=== PATIENT | male | born 1955 | race Caucasian/White ===

== ENCOUNTER 2016-10-15 22:33 | Inpatient (IN) | payer OTHER ==
[2016-10-15] MEDS ORDERED: Sodium Chloride 0.9% 10 ML Syringe FLUSH PRN (22:49)
[2016-10-15] MEDS ORDERED: Sodium Chloride 0.9% 2.5 ML Syringe FLUSH PRN (22:49)
[2016-10-15 23:36] LABS: CHLORIDE,CL 108 mmol/L (98-110); SODIUM,NA 143 mmol/L (136-146)
[2016-10-15] MEDS: Ondansetron 4 MG/2 ML SDV IVPUSH ONE (23:55)
[2016-10-15] MEDS: Sodium Chloride 0.9% 1,000 ML IV ONE (23:55)
[2016-10-16] MEDS ORDERED: HYDROmorphone 1 MG/ML Syringe IVPUSH ONE ×2 (00:27→00:55)
[2016-10-16] MEDS: Ondansetron 4 MG/2 ML SDV IVPUSH ONE (00:34)
[2016-10-16] MEDS: Sodium Chloride 0.9% 1,000 ML IV ONE (00:34)
--- NOTE | 2016-10-16 00:36 | EDM.PDOC ---
ED HPI GENERAL MEDICAL PROBLEM - General Chief Complaint: Gastrointestinal Problem Stated Complaint: ABDOMINAL PAIN Time Seen by Provider: 10/15/16 22:46 - History of Present Illness INITIAL COMMENTS - FREE TEXT/NARRATIVE: HISTORY AND PHYSICAL: History of present illness: Patient is 61-year-old white male with a prior abdominal surgeries and since her acute abdominal pain started earlier tonight he presents by paramedics who were called for his abdominal pain he was given fentanyl prior to arrival there is no reported fever chills trauma chest pain shortness of breath or other concern Review of systems: As per history of present illness and below otherwise all systems reviewed and negative. Past medical history: As per history of present illness and as reviewed below otherwise noncontributory. Surgical history: As per history of present illness and as reviewed below otherwise noncontributory. Social history: No reported history of drug or alcohol abuse. Family history: As per history of present illness and as reviewed below otherwise noncontributory. Physical exam: HEENT: Atraumatic, normocephalic, pupils reactive, negative for conjunctival pallor or scleral icterus, mucous membranes dry, throat clear, neck supple, nontender, trachea midline. Lungs: Clear to auscultation, breath sounds equal bilaterally, chest nontender. Heart: S1S2, regular, negative for clicks, rubs, or JVD. Abdomen: Soft, nondistended, tenderness across the upper abdomen this is nonlocalized no rebound no guarding. Negative for masses or hepatosplenomegaly. Negative for costovertebral tenderness. Pelvis: Stable nontender. Genitourinary: Deferred. Rectal: Deferred. Extremities: Atraumatic, negative for cords or calf pain. Neurovascular unremarkable. Neuro: Awake, alert, oriented. Cranial nerves II through XII unremarkable. Cerebellum unremarkable. Motor and sensory unremarkable throughout. Exam nonfocal. Diagnostics: CBC CMP lipase chest x-ray EKG UA EtOH urine drug screen CT abdomen and pelvis Therapeutics: Normal saline 1 L bolus Dilaudid 1 mg IV Zofran 4 mg IV the NG tube Impression: #1 acute abdominal pain rule out bowel obstruction Definitive disposition and diagnosis as appropriate pending reevaluation and review of above. Bilateral Abdominal Pain Score (Numeric/FACES): 10 - Related Data Allergies Allergy/AdvReac Type Severity Reaction Status Date / Time No Known Allergies Allergy Verified 10/15/16 22:51 Home Meds: Home Meds Tamsulosin [Flomax] 1 tab PO DAILY 10/15/16 [History] Past Medical History - Past Health History Medical/Surgical History: Denies Medical/Surgical History Gastrointestinal History: Reports: Other (see below) Other Gastrointestinal History: twisted bowel Genitourinary History: Reports: BPH - Infectious Disease History Infectious Disease History: Reports: Chicken pox, Measles, Mumps Social & Family History - Family History Family Medical History: Noncontributory - Tobacco Use Smoking Status *Q: Current Every Day Smoker Years of Tobacco use: 30 Packs/Tins Daily: 1 - Caffeine Use Caffeine Use: Reports: None - Recreational Drug Use Recreational Drug Use: No ED ROS GENERAL - Review of Systems Review Of Systems: ROS reveals no pertinent complaints other than HPI. ED EXAM, GENERAL - Physical Exam Exam: See Below (See dictation) Course - Vital Signs Last Recorded V/S: Last Vital Signs Temp 36.6 C 10/15/16 22:46 Pulse 67 10/15/16 22:46 Resp 22 H 10/15/16 22:46 BP 155/87 H 10/15/16 22:46 Pulse Ox 97 10/15/16 22:46 - Orders/Labs/Meds Orders: Active Orders 24 hr Category Date Time Status Cardiac Monitoring [RC] . DIRECTED Care 10/15/16 22:48 Active EKG Documentation Completion [RC] STAT Care 10/15/16 22:49 Active Insert Lagunas Catheter [Insert Urinary Catheter] [OM.PC] Care 10/16/16 01:45 Ordered Q24H Pulse Oximetry [RC] ASDIRECTED Care 10/15/16 22:49 Active Urinary Catheter Assessment [RC] ASDIRECTED Care 10/16/16 01:40 Active Abdomen 1V Upright [CR] Stat Exams 10/16/16 01:13 Taken Abdomen Pelvis wo Cont [CT] Stat Exams 10/15/16 22:49 Taken Chest 1V Frontal [CR] Stat Exams 10/15/16 22:49 Taken UA W/MICROSCOPIC [URIN] Stat Lab 10/15/16 22:49 Ordered Sodium Chloride 0.9% [Saline Flush] Med 10/15/16 22:49 Active 10 ml FLUSH ASDIRECTED PRN Sodium Chloride 0.9% [Saline Flush] Med 10/15/16 22:49 Active 2.5 ml FLUSH ASDIRECTED PRN Nasogastric Orogastric Tube Insertion [OM.PC] Stat Oth 10/16/16 00:27 Ordered Saline Lock Insert [OM.PC] Stat Ot 10/15/16 22:48 Ordered Medication Orders Sodium Chloride (Saline Flush) 10 ml FLUSH ASDIRECTED PRN PRN Reason: Keep Vein Open Last Admin: 10/16/16 00:34 Dose: 10 ml Sodium Chloride (Saline Flush) 2.5 ml FLUSH ASDIRECTED PRN PRN Reason: Keep Vein Open Last Admin: 10/16/16 00:34 Dose: 2.5 ml Labs: Laboratory Tests 10/15/16 10/15/16 10/15/16 Range/Units 00:00 23:03 23:03 WBC 12.94 H (4.0-11.0) K/uL RBC 4.49 L (4.50-5.90) M/uL Hgb 14.1 (13.0-17.0) g/dL Hct 41.0 (38.0-50.0) % MCV 91.3 (80.0-98.0) fL MCH 31.4 (27.0-32.0) pg MCHC 34.4 (31.0-37.0) g/dL RDW Std Deviation 48.3 (28.0-62.0) fl RDW Coeff of Wilfred 14 (11.0-15.0) % Plt Count 371 (150-400) K/uL MPV 9.70 (7.40-12.00) fL Neut % (Auto) 83.5 H (48.0-80.0) % Lymph % (Auto) 11.0 L (16.0-40.0) % [place] % (Auto) 5.0 (0.0-15.0) % Eos % (Auto) 0.3 (0.0-7.0) % Baso % (Auto) 0.2 (0.0-1.5) % Neut # (Auto) 10.8 H (1.4-5.7) K/uL Lymph # (Auto) 1.4 (0.6-2.4) K/uL Titus # (Auto) 0.7 (0.0-0.8) K/uL Eos # (Auto) 0.0 (0.0-0.7) K/uL Baso # (Auto) 0.0 (0.0-0.1) K/uL Nucleated RBC % 0.0 /100WBC Nucleated RBCs # 0 K/uL INR 0.97 (0.86-1.11) Lactate (0.20-2.00) mmol/L Sodium (136-146) mmol/L Potassium (3.5-5.1) mmol/L Chloride (98-110) mmol/L Carbon Dioxide (21-31) mmol/L BUN (6.0-23.0) mg/dL Creatinine (0.6-1.5) mg/dL Est Cr Clr Drug Dosing mL/min Estimated GFR (MDRD) ml/min Glucose (60-110) mg/dL Calcium (8.8-10.8) mg/dL Total Bilirubin (0.1-1.5) mg/dL AST (5-40) IU/L ALT (8-54) IU/L Alkaline Phosphatase (40-150) Ammonia (14-68) UG/DL Troponin I (0.0-0.29) NG/ML Total Protein (6.0-8.0) g/dL Albumin (3.4-4.8) g/dL Globulin (2.0-3.5) g/dL Albumin/Globulin Ratio (1.3-2.8) Lipase (7-80) U/L Urine Opiates Screen NEGATIVE (NEGATIVE) Ur Oxycodone Screen NEGATIVE (NEGATIVE) Urine Methadone Screen NEGATIVE (NEGATIVE) Ur Barbiturates Screen NEGATIVE (NEGATIVE) Ur Phencyclidine Scrn NEGATIVE (NEGATIVE) Ur Amphetamine Screen NEGATIVE (NEGATIVE) U Methamphetamines Scrn POSITIVE (NEGATIVE) U Benzodiazepines Scrn NEGATIVE (NEGATIVE) U Cocaine Metab Screen NEGATIVE (NEGATIVE) U Marijuana (THC) Screen NEGATIVE (NEGATIVE) Ethyl Alcohol mg/dL 10/15/16 10/15/16 10/15/16 Range/Units 23:03 23:03 23:03 WBC (4.0-11.0) K/uL RBC (4.50-5.90) M/uL Hgb (13.0-17.0) g/dL Hct (38.0-50.0) % MCV (80.0-98.0) fL MCH (27.0-32.0) pg MCHC (31.0-37.0) g/dL RDW Std Deviation (28.0-62.0) fl RDW Coeff of Wilfred (11.0-15.0) % Plt Count (150-400) K/uL MPV (7.40-12.00) fL Neut % (Auto) (48.0-80.0) % Lymph % (Auto) (16.0-40.0) % Titus % (Auto) (0.0-15.0) % Eos % (Auto) (0.0-7.0) % Baso % (Auto) (0.0-1.5) % Neut # (Auto) (1.4-5.7) K/uL Lymph # (Auto) (0.6-2.4) K/uL Titus # (Auto) (0.0-0.8) K/uL Eos # (Auto) (0.0-0.7) K/uL Baso # (Auto) (0.0-0.1) K/uL Nucleated RBC % /100WBC Nucleated RBCs # K/uL INR (0.86-1.11) Lactate 1.7 (0.20-2.00) mmol/L Sodium 143 (136-146) mmol/L Potassium 4.6 (3.5-5.1) mmol/L Chloride 108 (98-110) mmol/L Carbon Dioxide 22 (21-31) mmol/L BUN 33 H (6.0-23.0) mg/dL Creatinine 1.2 (0.6-1.5) mg/dL Est Cr Clr Drug Dosing 71.85 mL/min Estimated GFR (MDRD) > 60.0 ml/min Glucose 110 (60-110) mg/dL Calcium 10.0 (8.8-10.8) mg/dL Total Bilirubin 0.3 (0.1-1.5) mg/dL AST 21 (5-40) IU/L ALT 13 (8-54) IU/L Alkaline Phosphatase 87 (40-150) Ammonia (14-68) UG/DL Troponin I < 0.10 (0.0-0.29) NG/ML Total Protein 7.9 (6.0-8.0) g/dL Albumin 4.6 (3.4-4.8) g/dL Globulin 3.3 (2.0-3.5) g/dL Albumin/Globulin Ratio 1.4 (1.3-2.8) Lipase 34 (7-80) U/L Urine Opiates Screen (NEGATIVE) Ur Oxycodone Screen (NEGATIVE) Urine Methadone Screen (NEGATIVE) Ur Barbiturates Screen (NEGATIVE) Ur Phencyclidine Scrn (NEGATIVE) Ur Amphetamine Screen (NEGATIVE) U Methamphetamines Scrn (NEGATIVE) U Benzodiazepines Scrn (NEGATIVE) U Cocaine Metab Screen (NEGATIVE) U Marijuana (THC) Screen (NEGATIVE) Ethyl Alcohol < 10.0 mg/dL 10/15/16 Range/Units 23:03 WBC (4.0-11.0) K/uL RBC (4.50-5.90) M/uL Hgb (13.0-17.0) g/dL Hct (38.0-50.0) % MCV (80.0-98.0) fL MCH (27.0-32.0) pg MCHC (31.0-37.0) g/dL RDW Std Deviation (28.0-62.0) fl RDW Coeff of Wilfred (11.0-15.0) % Plt Count (150-400) K/uL MPV (7.40-12.00) fL Neut % (Auto) (48.0-80.0) % Lymph % (Auto) (16.0-40.0) % Titus % (Auto) (0.0-15.0) % Eos % (Auto) (0.0-7.0) % Baso % (Auto) (0.0-1.5) % Neut # (Auto) (1.4-5.7) K/uL Lymph # (Auto) (0.6-2.4) K/uL Titus # (Auto) (0.0-0.8) K/uL Eos # (Auto) (0.0-0.7) K/uL Baso # (Auto) (0.0-0.1) K/uL Nucleated RBC % /100WBC Nucleated RBCs # K/uL INR (0.86-1.11) Lactate (0.20-2.00) mmol/L Sodium (136-146) mmol/L Potassium (3.5-5.1) mmol/L Chloride (98-110) mmol/L Carbon Dioxide (21-31) mmol/L BUN (6.0-23.0) mg/dL Creatinine (0.6-1.5) mg/dL Est Cr Clr Drug Dosing mL/min Estimated GFR (MDRD) ml/min Glucose (60-110) mg/dL Calcium (8.8-10.8) mg/dL Total Bilirubin (0.1-1.5) mg/dL AST (5-40) IU/L ALT (8-54) IU/L Alkaline Phosphatase (40-150) Ammonia 38 (14-68) UG/DL Troponin I (0.0-0.29) NG/ML Total Protein (6.0-8.0) g/dL Albumin (3.4-4.8) g/dL Globulin (2.0-3.5) g/dL Albumin/Globulin Ratio (1.3-2.8) Lipase (7-80) U/L Urine Opiates Screen (NEGATIVE) Ur Oxycodone Screen (NEGATIVE) Urine Methadone Screen (NEGATIVE) Ur Barbiturates Screen (NEGATIVE) Ur Phencyclidine Scrn (NEGATIVE) Ur Amphetamine Screen (NEGATIVE) U Methamphetamines Scrn (NEGATIVE) U Benzodiazepines Scrn (NEGATIVE) U Cocaine Metab Screen (NEGATIVE) U Marijuana (THC) Screen (NEGATIVE) Ethyl Alcohol mg/dL Meds: Medications Generic Name Dose Route Start Last Admin Trade Name Freq PRN Reason Stop Dose Admin Sodium Chloride 10 ml 10/15/16 22:49 10/16/16 00:34 Saline Flush FLUSH 10 ml ASDIRECTED PRN Administration Keep Vein Open Sodium Chloride 2.5 ml 10/15/16 22:49 10/16/16 00:34 Saline Flush FLUSH 2.5 ml ASDIRECTED PRN Administration Keep Vein Open Discontinued Medications Generic Name Dose Route Start Last Admin Trade Name Freq PRN Reason Stop Dose Admin Hydromorphone HCl 1 mg 10/16/16 00:27 10/16/16 00:34 Dilaudid IVPUSH 10/16/16 00:28 1 mg ONETIME ONE Administration Hydromorphone HCl Confirm 10/16/16 00:46 10/16/16 01:00 Dilaudid Administered 10/16/16 00:47 Not Given Dose 2 mg .ROUTE .STK-MED ONE Hydromorphone HCl 2 mg 10/16/16 00:55 10/16/16 01:01 Dilaudid IVPUSH 10/16/16 00:56 2 mg ONETIME ONE Administration Sodium Chloride 1,000 mls @ 999 mls/hr 10/15/16 22:49 10/16/16 00:34 Normal Saline IV 10/15/16 23:49 999 mls/hr STAT ONE Administration Ondansetron HCl 4 mg 10/15/16 22:49 10/16/16 00:34 Zofran IVPUSH 10/15/16 22:50 4 mg ONETIME ONE Administration Departure - Departure Time of Disposition: 00:35 Disposition: Admitted As Inpatient 67 Condition: good Clinical Impression: Abdominal pain, Small bowel obstruction Referrals: PCP,None [Primary Care Provider] - Forms: ED Department Discharge - My Orders Last 24 Hours: My Active Orders 10/15/16 22:48 Cardiac Monitoring [RC] . DIRECTED Saline Lock Insert [OM.PC] Stat 10/15/16 22:49 EKG Documentation Completion [RC] STAT Pulse Oximetry [RC] ASDIRECTED Abdomen Pelvis wo Cont [CT] Stat Chest 1V Frontal [CR] Stat UA W/MICROSCOPIC [URIN] Stat Sodium Chloride 0.9% [Saline Flush] 10 ml FLUSH ASDIRECTED PRN Sodium Chloride 0.9% [Saline Flush] 2.5 ml FLUSH ASDIRECTED PRN 10/16/16 00:27 Nasogastric Orogastric Tube Insertion [OM.PC] Stat 10/16/16 01:13 Abdomen 1V Upright [CR] Stat 10/16/16 01:40 Urinary Catheter Assessment [RC] ASDIRECTED 10/16/16 01:45 Insert Lagunas Catheter [Insert Urinary Catheter] [OM.PC] Q24H - Assessment/Plan Last 24 Hours: My Active Orders 10/15/16 22:48 Cardiac Monitoring [RC] . DIRECTED Saline Lock Insert [OM.PC] Stat 10/15/16 22:49 EKG Documentation Completion [RC] STAT Pulse Oximetry [RC] ASDIRECTED Abdomen Pelvis wo Cont [CT] Stat Chest 1V Frontal [CR] Stat UA W/MICROSCOPIC [URIN] Stat Sodium Chloride 0.9% [Saline Flush] 10 ml FLUSH ASDIRECTED PRN Sodium Chloride 0.9% [Saline Flush] 2.5 ml FLUSH ASDIRECTED PRN 10/16/16 00:27 Nasogastric Orogastric Tube Insertion [OM.PC] Stat 10/16/16 01:13 Abdomen 1V Upright [CR] Stat 10/16/16 01:40 Urinary Catheter Assessment [RC] ASDIRECTED 10/16/16 01:45 Insert Lagunas Catheter [Insert Urinary Catheter] [OM.PC] Q24H
[2016-10-16] MEDS ORDERED: HYDROmorphone 2 MG/ML Syringe ONE (00:46)
--- NOTE | 2016-10-16 02:35 | HP ---
DATE OF : 1955 PRIMARY CARE PHYSICIAN: None PCP Consult is from Dr. Evans. Concerning question is possible bowel obstruction. HISTORY OF PRESENT ILLNESS: The patient is a 61-year-ago gentleman, seen in the emergency room for 7 to 10 day history of abdominal pain. The patient remarked that this is from his stomach problem. The patient's history is the best I can make out off as patient is having pain medication and intermittently going back to sleep. The patient remarked that he has not been feeling right for about 7 to 10 day and pain is in the last 3 days. The patient also remarked that he has normal well- formed bowel movement today. When seen emergency room, pain persist and seek help in the emergency room. CAT scan was done, shows that possible bowel obstruction. Surgery was then called. The patient remarked that he also had a prior episode about 4 to 5 years ago and his bowel was twisted. PAST MEDICAL HISTORY: Significant for no diabetic, [place], CVA, hypertension. PAST SURGICAL HISTORY: On 2012, the patient has some twist of bowel surgery. REVIEW OF SYSTEMS: Same as history of present illness. ALLERGIES: Please refer nursing for details. MEDICATION: Please refer nursing for details. FAMILY HISTORY: Noncontributory. SOCIAL HISTORY: The patient is current everyday smoker and his UA test is positive for amphetamine. Cocaine and alcohol are negative. PHYSICAL EXAMINATION: GENERAL: The patient is completely snoring, lying in the bed, able to be awake and sometimes do eye opening. Deny pain. Every time while asking he has denied pain. Of course we understand that the patient had 3 mg of Dilaudid. NG tube is inserted and Lagunas is inserted with some difficulty as patient has BPH. HEENT: Normocephalic, atraumatic. Sclerae anicteric. LUNGS: Clear to auscultation. HEART: Regular rate and rhythm. ABDOMEN: Soft, and decreased bowel sounds. Nontender and very small midline incision, right around in navel area about 5 cm. No hernia appreciated. : Testes, bilaterally descended. Soft and symmetrically. IMPRESSION: Ileus versus bowel obstruction. With the patient current status, examination may not be reliable. However, the patient has absolutely denied any pain and prefer the surveillance and close monitoring plan. We will admit for observation, IV hydration, n.p.o., no Tylenol or pain medication, and reassess after NG tube working. NG tube put in and output is 1500. Lagunas put in, PP is pretty nicolas and close to about 2 L. Would put the patient on IV hydration, serial abdominal exam, and repeat CT with IV contrast. AMALAI / MARRY /[id number]
[2016-10-16] MEDS: Lactated Ringers 1,000 ML IV SCH ×3 (02:55→18:08)
[2016-10-16] MEDS: Piperacillin/Tazobactam 3.375 GM in Sodium Chloride 0.9% 50 ML IV SCH ×3 (03:13→18:06)
[2016-10-16] MEDS ORDERED: Haloperidol Lactate 5 MG/ML SDV IM ONE (06:24)
[2016-10-16] MEDS ORDERED: fentaNYL 100 MCG/2 ML SDV IVPUSH PRN (06:24)
[2016-10-16] MEDS ORDERED: Haloperidol Lactate 5 MG/ML SDV ONE (06:24)
[2016-10-16] MEDS ORDERED: fentaNYL 100 MCG/2 ML SDV ONE (06:24)
[2016-10-16] MEDS ORDERED: Haloperidol Lactate 5 MG/ML SDV IM PRN (06:43)
[2016-10-16] MEDS ORDERED: LORazepam 2 MG/ML MDV IV PRN (07:18)
[2016-10-16 07:37] LABS: CHLORIDE,CL 112 mmol/L (98-110); SODIUM,NA 145 mmol/L (136-146)
[2016-10-16] MEDS: Pantoprazole 40 MG in Sodium Chloride 0.9% 10 ML IVPUSH SCH (09:41)
[2016-10-16] MEDS ORDERED: Flumazenil 0.1 MG/ML 5 ML MDV IVPUSH ONE (11:28)
--- NOTE | 2016-10-16 11:53 | PCM.SN ---
- Free Text/Narrative Note: progress note done #[id number]; await delay CT at 1 pm
--- NOTE | 2016-10-16 15:06 | PCM.SURGPN ---
- General Info Date of Service: 10/16/16 Pain Score: 0 - Review of Systems Genitourinary: Reports: no symptoms - Patient Data Vitals - most recent: Last Vital Signs Temp 97.8 F 10/16/16 12:00 Pulse 74 10/16/16 01:40 Resp 16 10/16/16 14:00 BP 149/75 H 10/16/16 14:00 Pulse Ox 95 10/16/16 14:00 Weight - most recent: 155 lb 10.342 oz I&O - last 24 hours: Intake & Output 10/16/16 10/16/16 10/16/16 06:59 14:59 22:59 Intake Total 50 Output Total 450 Balance -400 Lab Results last 24 hrs: Laboratory Results - last 24 hr 10/16/16 10/16/16 Range/Units 07:05 07:05 WBC 6.86 (4.0-11.0) K/uL RBC 4.11 L (4.50-5.90) M/uL Hgb 12.6 L (13.0-17.0) g/dL Hct 37.9 L (38.0-50.0) % MCV 92.2 (80.0-98.0) fL MCH 30.7 (27.0-32.0) pg MCHC 33.2 (31.0-37.0) g/dL RDW Std Deviation 49.0 (28.0-62.0) fl RDW Coeff of Wilfred 15 (11.0-15.0) % Plt Count 321 (150-400) K/uL MPV 9.40 (7.40-12.00) fL Neut % (Auto) 68.6 (48.0-80.0) % Lymph % (Auto) 21.3 (16.0-40.0) % [place] % (Auto) 9.9 (0.0-15.0) % Eos % (Auto) 0.1 (0.0-7.0) % Baso % (Auto) 0.1 (0.0-1.5) % Neut # (Auto) 4.7 (1.4-5.7) K/uL Lymph # (Auto) 1.5 (0.6-2.4) K/uL [place] # (Auto) 0.7 (0.0-0.8) K/uL Eos # (Auto) 0.0 (0.0-0.7) K/uL Baso # (Auto) 0.0 (0.0-0.1) K/uL Nucleated RBC % 0.0 /100WBC Nucleated RBCs # 0 K/uL Sodium 145 (136-146) mmol/L Potassium 4.3 (3.5-5.1) mmol/L Chloride 112 H (98-110) mmol/L Carbon Dioxide 23 (21-31) mmol/L BUN 29 H (6.0-23.0) mg/dL Creatinine 1.0 (0.6-1.5) mg/dL Est Cr Clr Drug Dosing 78.44 mL/min Estimated GFR (MDRD) > 60.0 ml/min Glucose 119 H (60-110) mg/dL Calcium 8.6 L (8.8-10.8) mg/dL Total Bilirubin 0.4 (0.1-1.5) mg/dL AST 16 (5-40) IU/L ALT 13 (8-54) IU/L Alkaline Phosphatase 74 (40-150) Total Protein 6.6 (6.0-8.0) g/dL Albumin 3.9 (3.4-4.8) g/dL Globulin 2.7 (2.0-3.5) g/dL Albumin/Globulin Ratio 1.4 (1.3-2.8) Med Orders - Current: Current Medications Fentanyl (Sublimaze) 25 mcg IVPUSH Q2H PRN PRN Reason: Pain Last Admin: 10/16/16 06:30 Dose: 25 mcg Haloperidol Lactate (Haldol) 5 mg IM Q6H PRN PRN Reason: Agitation Lactated Ringer's (Ringers, Lactated) 1,000 mls @ 150 mls/hr IV ASDIRECTED [facility] Last Admin: 10/16/16 02:55 Dose: 150 mls/hr Pantoprazole Sodium 40 mg/ (Sodium Chloride) 10 mls @ 300 mls/hr IVPUSH DAILY [facility] Last Admin: 10/16/16 09:41 Dose: 300 mls/hr Piperacillin Sod/Tazobactam (Sod 3.375 gm/ Sodium Chloride) 50 mls @ 100 mls/ hr IV Q8H [facility] Last Admin: 10/16/16 09:41 Dose: 100 mls/hr Lorazepam (Ativan) 2 mg IV Q4H PRN PRN Reason: Agitation Last Admin: 10/16/16 07:27 Dose: 2 mg Sodium Chloride (Saline Flush) 10 ml FLUSH ASDIRECTED PRN PRN Reason: Keep Vein Open Last Admin: 10/16/16 00:34 Dose: 10 ml Sodium Chloride (Saline Flush) 2.5 ml FLUSH ASDIRECTED PRN PRN Reason: Keep Vein Open Last Admin: 10/16/16 00:34 Dose: 2.5 ml Discontinued Medications Fentanyl (Sublimaze) Confirm Administered Dose 100 mcg .ROUTE .STK-MED ONE Stop: 10/16/16 06:25 Last Admin: 10/16/16 06:40 Dose: Not Given Flumazenil (Romazicon) 0.2 mg IVPUSH ONETIME ONE Stop: 10/16/16 11:29 Last Admin: 10/16/16 11:32 Dose: 0.2 mg Haloperidol Lactate (Haldol) Confirm Administered Dose 5 mg .ROUTE .STK-MED ONE Stop: 10/16/16 06:25 Last Admin: 10/16/16 06:40 Dose: Not Given Haloperidol Lactate (Haldol) 5 mg IM ONETIME ONE Stop: 10/16/16 06:25 Last Admin: 10/16/16 06:31 Dose: 5 mg Hydromorphone HCl (Dilaudid) 1 mg IVPUSH ONETIME ONE Stop: 10/16/16 00:28 Last Admin: 10/16/16 00:34 Dose: 1 mg Hydromorphone HCl (Dilaudid) Confirm Administered Dose 2 mg .ROUTE .STK-MED ONE Stop: 10/16/16 00:47 Last Admin: 10/16/16 01:00 Dose: Not Given Hydromorphone HCl (Dilaudid) 2 mg IVPUSH ONETIME ONE Stop: 10/16/16 00:56 Last Admin: 10/16/16 01:01 Dose: 2 mg Sodium Chloride (Normal Saline) 1,000 mls @ 999 mls/hr IV STAT ONE Stop: 10/15/16 23:49 Last Admin: 10/16/16 00:34 Dose: 999 mls/hr Ondansetron HCl (Zofran) 4 mg IVPUSH ONETIME ONE Stop: 10/15/16 22:50 Last Admin: 10/16/16 00:34 Dose: 4 mg - Exam Abdomen: bowel sounds present, soft, no tenderness, no distension - Problem List Review Problem List Initiated/Reviewed/Updated: Yes - My Orders Last 24 Hours: Active Orders 24 hr Category Date Time Status Communication Order [RC] ROUTINE Care 10/16/16 02:13 Active Communication Order [RC] ROUTINE Care 10/16/16 02:17 Active Communication Order [RC] ROUTINE Care 10/16/16 06:52 Active Communication Order [RC] ROUTINE Care 10/16/16 11:27 Active Communication Order [RC] ROUTINE Care 10/16/16 11:53 Active Nothing per Oral Now Diet [DIET] Diet 10/16/16 Breakfast Active Abdomen Pelvis wo Cont [CT] Routine Exams 10/16/16 07:00 Taken Abdomen Pelvis wo Cont [CT] Routine Exams 10/16/16 13:00 Taken CBC W/O DIFF,HEMOGRAM [HEME] Routine Lab 10/17/16 05:00 Ordered CMP [COMPREHENSIVE METABOLIC PN,CMP] [CHEM] Routine Lab 10/17/16 05:00 Ordered Haloperidol Lactate [Haldol] Med 10/16/16 06:43 Active 5 mg IM Q6H PRN LORazepam [Ativan] Med 10/16/16 07:18 Active 2 mg IV Q4H PRN Lactated Ringers [Ringers, Lactated] 1,000 ml Med 10/16/16 02:15 Active IV ASDIRECTED Pantoprazole [Protonix IV] 40 mg Med 10/16/16 09:00 Active Sodium Chloride 0.9% [Normal Saline] 10 ml IVPUSH DAILY Piperacillin/Tazobactam [Piperacil-Tazobact] 3.375 gm Med 10/16/16 02:15 Active Sodium Chloride 0.9% [Normal Saline] 50 ml IV Q8H fentaNYL [Sublimaze] Med 10/16/16 06:24 Active 25 mcg IVPUSH Q2H PRN Code Status [Resuscitation Status] Routine Resus Stat 10/16/16 13:13 Ordered Medication Orders Fentanyl (Sublimaze) 25 mcg IVPUSH Q2H PRN PRN Reason: Pain Last Admin: 10/16/16 06:30 Dose: 25 mcg Haloperidol Lactate (Haldol) 5 mg IM Q6H PRN PRN Reason: Agitation Lactated Ringer's (Ringers, Lactated) 1,000 mls @ 150 mls/hr IV ASDIRECTED [facility] Last Admin: 10/16/16 02:55 Dose: 150 mls/hr Pantoprazole Sodium 40 mg/ (Sodium Chloride) 10 mls @ 300 mls/hr IVPUSH DAILY [facility] Last Admin: 10/16/16 09:41 Dose: 300 mls/hr Piperacillin Sod/Tazobactam (Sod 3.375 gm/ Sodium Chloride) 50 mls @ 100 mls/ hr IV Q8H [facility] Last Admin: 10/16/16 09:41 Dose: 100 mls/hr Infusion: 10/16/16 03:43 Dose: 100 mls/hr Admin: 10/16/16 03:13 Dose: 100 mls/hr Lorazepam (Ativan) 2 mg IV Q4H PRN PRN Reason: Agitation Last Admin: 10/16/16 07:27 Dose: 2 mg Sodium Chloride (Saline Flush) 10 ml FLUSH ASDIRECTED PRN PRN Reason: Keep Vein Open Last Admin: 10/16/16 00:34 Dose: 10 ml Sodium Chloride (Saline Flush) 2.5 ml FLUSH ASDIRECTED PRN PRN Reason: Keep Vein Open Last Admin: 10/16/16 00:34 Dose: 2.5 ml - Assessment Assessment (Free Text/Narrative):: delayed cut ct done at 1 pm noted contrast made it to colon; no bowel obstruction; continue iv abx/protonix/ivfluid; check lab in morning and kub; continue serial abd exam and fu w imaging studies; - Plan Plan (Free Text/Narrative):: delayed cut ct done at 1 pm noted contrast made it to colon; no bowel obstruction; continue iv abx/protonix/ivfluid; check lab in morning and kub; continue serial abd exam and fu w imaging studies;
[2016-10-17] MEDS: Lactated Ringers 1,000 ML IV SCH ×4 (00:54→23:43)
[2016-10-17] MEDS: Piperacillin/Tazobactam 3.375 GM in Sodium Chloride 0.9% 50 ML IV SCH ×3 (02:19→18:08)
[2016-10-17 06:11] LABS: CHLORIDE,CL 110 mmol/L (98-110); SODIUM,NA 141 mmol/L (136-146)
[2016-10-17] MEDS: Pantoprazole 40 MG in Sodium Chloride 0.9% 10 ML IVPUSH SCH (08:47)
--- NOTE | 2016-10-17 09:44 | PN ---
The patient is hospital day #1 admission for ileus versus obstruction. SUBJECTIVE: The patient's first consulted when seen in emergency room, however, the patient is getting 3 mg IV Dilaudid before prior to seen, so the patient is 90% falling to asleep and examination is deemed to be unreliable. The patient was admitted for serial abdominal exam and followup imaging study. However, around 6 o'clock in the morning, 4 hours after the admission, the patient was combative and fighting and pulling IV, pulling Lagunas. The patient had to be sedated, and so EICU was consulted and given Haldol and also fentanyl pain medication in order to calm the patient and the patient subsequently went for CAT scan about 9 o'clock after giving contrast through the NG tube and I am rounding on the patient after the CAT scan result and on top of this, the patient continued to be non-cooperative and combative and makes management difficult and also harmful to his person and the EICU doctor gave 2 mg IV Ativan. As a result, the patient is sound snoring and barely able to answer any conversation, after knocking the chest 3 times, the patient may answer half a sentence. OBJECTIVE: VITAL SIGNS: Temperature is 98.6, and heart rate is 67, blood pressure 143/80, and respiratory rate is 10, and O2 saturation by pulse is 98% on 1 L oxygen. GENERAL: The patient is totally knocked out and again able to answer maybe half a sentence after knocking at a chest 3 times. HEENT: Normocephalic and atraumatic. CHEST: Clear to auscultation. ABDOMEN: Soft, nondistended. No pulsating tender, midline abdominal structure, and there are very minimal bowel sounds with sometimes high pitch upon compression. When the patient is able to answer any question, the patient denied any pain whatsoever. Abdomen is totally soft. LABORATORY DATA: Upon consultation, H and H of 13 and 38, and white count 6.86 is down from 13, platelet is 321, and BUN is 29, and creatinine is 1.0. Urinalysis, upon admission the patient has positive for methamphetamine, negative for alcohol, negative for cocaine, and negative for marijuana. UA was sent and suggest the patient may have urinary tract infection. White cells 65-70, nitrites positive. On repeat CAT scan result the reading is persistent ileus pattern no transition zone identified. Contrast did not reach the colon. I also called Radiology, discussed the pattern, the reading is distention is slightly better, but it is persistent ileus pattern and they suggest to delay the CAT scan. IMPRESSION: The patient has not been able to have a meaningful abdominal exam, however. 1. The NG tube output is about 100 mL since insertion, very little. 2. The patient denied pain for more than 10 times every time when wake up and open his eyes. 3. The patient's white count is dropping down from 13 to 6.8. 4. The patient's urine output continued to be good nicolas on 150 mL IV fluids. 5. His tummy is resolved, although bowel sound is still less. We will continue to monitor him and absolutely no EICU consult and absolutely no narcotic pain medication Ativan, any medication or aspirin or Tylenol to mask fever, and we will wait for the 1 o'clock for the delayed contrast to reach the colon. Then, probably we will treat as ileus. Continue NG tube conservative management. Otherwise, anything suspicious will bring the patient a trip to the operating room mainly because not been able to have meaningful examination. At the same time, we also need to get the family to get a consent for the surgery if the patient need a trip to the operating room. AMALIA / MARRY /[id number] GERTRUDIS
--- NOTE | 2016-10-17 10:16 | CR ---
EXAMINATION: Abdomen HISTORY: Ileus COMPARISON: CT dated 10/16/2016. TECHNIQUE: AP and upright views FINDINGS: There is an NG tube noted with tip in the stomach, however the side-port is within the eso phagus, this could be advanced approximately 5 cm. There are a few prominent loops of small bowel no romero measuring up to 4.3 cm. There is a moderate amount of stool and gas throughout the colon. No dennis e air under the diaphragm. The lung bases are clear. The visualized osseous structures appear normal . IMPRESSION: 1. NG tube with tip in the stomach however the side-port is within the distal esophagus. This could be advanced approximately 5 cm. 2. Mildly persistent prominent loops of small bowel.
[2016-10-17] MEDS: Enalaprilat 1.25 MG/ML SDV IVPUSH SCH ×3 (11:36→23:20)
--- NOTE | 2016-10-17 11:48 | PCM.CONS ---
H&P History of Present Illness - General Date of Service: 10/17/16 Admit Problem/Dx: Admission Diagnosis/Problem Admission Diagnosis/Problem Paralytic ileus Source of Information: Patient, Provider, RN - History of Present Illness Initial Comments - Free Text/Narative: I was asked by Dr. Reeves to see this 61-year-old gentleman who is in the intensive care unit for ileus versus bowel obstruction. He has a history of hypertension. He denies headache. He denies dyspnea he denies chest pain. He is currently on broad-spectrum antibiotics as per Dr. Reeves' s note. Bilateral Abdominal Pain Score (Numeric/FACES): 10 - Related Data Allergies/Adverse Reactions: Allergies Allergy/AdvReac Type Severity Reaction Status Date / Time No Known Allergies Allergy Verified 10/15/16 22:51 Home Medications: Home Meds Tamsulosin [Flomax] 1 tab PO DAILY 10/15/16 [History] Past Medical History - Past Health History Medical/Surgical History: Denies Medical/Surgical History Cardiovascular History: Reports: Hypertension. Denies: Arrhythmia, CAD, Cardiomyopathy, Congenital septal defect, Heart Failure Respiratory History: Denies: COPD, Pulmonary fibrosis Gastrointestinal History: Reports: Other (see below). Denies: Cirrhosis Other Gastrointestinal History: twisted bowel Genitourinary History: Reports: BPH - Infectious Disease History Infectious Disease History: Reports: Chicken pox, Measles, Mumps Social & Family History - Family History Family Medical History: Noncontributory - Tobacco Use Smoking Status *Q: Current Every Day Smoker Years of Tobacco use: 30 Packs/Tins Daily: 1 - Caffeine Use Caffeine Use: Reports: None - Recreational Drug Use Recreational Drug Use: No H&P Review of Systems - Review of Systems: Review Of Systems: See Below General: Denies: chills HEENT: Denies: ear pain, sore throat Pulmonary: Denies: Shortness of Breath, Wheezing, Cough Cardiovascular: Denies: chest pain, palpitations Gastrointestinal: Denies: Other (as per Dr Reeves's notes.) Genitourinary: Reports: other (He is currently at on antibiotics as mentioned above. His urinalysis is consistent with a urinary tract infection.) Skin: Denies: cyanosis Exam - Exam Exam: See Below - Vital Signs Vital Signs: Last Vital Signs Temp 97.9 F 10/17/16 08:00 Pulse 74 10/16/16 01:40 Resp 14 10/17/16 08:00 BP 156/82 H 10/17/16 11:36 Pulse Ox 96 10/17/16 08:00 Weight: 73.2 kg - Exam General: alert, cooperative, other (nasogastric tube in) HEENT: EOMI Lungs: Clear to auscultation, Normal respiratory effort. No: Crackles, Rales, Rhonchi, Wheezing Cardiovascular: regular rate, regular rhythm Abdomen: soft, other (further exam as per Dr Reeves.) Neurological: normal speech. No: focal deficit Neuro Extensive - Mental Status: normal mood/affect Neuro Extensive - Motor, Sensory, Reflexes: No: facial palsy (L), facial palsy ( R), hemiplagia (L), hemiplagia (R) Psychiatric: alert - Patient Data Lab Results last 24 hrs: Laboratory Results - last 24 hr 10/17/16 10/17/16 Range/Units 05:15 05:15 WBC 4.99 (4.0-11.0) K/uL RBC 3.97 L (4.50-5.90) M/uL Hgb 12.1 L (13.0-17.0) g/dL Hct 36.9 L (38.0-50.0) % MCV 92.9 (80.0-98.0) fL MCH 30.5 (27.0-32.0) pg MCHC 32.8 (31.0-37.0) g/dL RDW Std Deviation 50.3 (28.0-62.0) fl RDW Coeff of Wilfred 15 (11.0-15.0) % Plt Count 328 (150-400) K/uL MPV 9.50 (7.40-12.00) fL Nucleated RBC % 0.0 /100WBC Nucleated RBCs # 0 K/uL Sodium 141 (136-146) mmol/L Potassium 4.0 (3.5-5.1) mmol/L Chloride 110 (98-110) mmol/L Carbon Dioxide 23 (21-31) mmol/L BUN 17 (6.0-23.0) mg/dL Creatinine 0.9 (0.6-1.5) mg/dL Est Cr Clr Drug Dosing 90.37 mL/min Estimated GFR (MDRD) > 60.0 ml/min Glucose 90 (60-110) mg/dL Calcium 8.3 L (8.8-10.8) mg/dL Total Bilirubin 0.7 (0.1-1.5) mg/dL AST 16 (5-40) IU/L ALT 9 (8-54) IU/L Alkaline Phosphatase 61 (40-150) Total Protein 5.5 L (6.0-8.0) g/dL Albumin 3.0 L (3.4-4.8) g/dL Globulin 2.5 (2.0-3.5) g/dL Albumin/Globulin Ratio 1.2 L (1.3-2.8) Result Diagrams: 10/17/16 05:15 10/17/16 05:15 Consult PN Assessment/Plan Problem List Initiated/Reviewed/Updated: Yes My Orders last 24 hours: My Active Orders 10/17/16 08:50 CULTURE URINE [RM] Stat 10/17/16 11:00 Enalaprilat [Vasotec IV] 1.25 mg IVPUSH Q6H 10/17/16 11:42 Communication Order [RC] STAT Plan: vasotec IV to control HTN he takes antihypertensives at home. will follow thank you to Dr Reeves for the opportunity to consult on this nice gentleman. Helio Bejarano MD
--- NOTE | 2016-10-17 11:52 | PCM.SURGPN ---
- General Info Date of Service: 10/17/16 POD#: 2 Pain Score: 0 - Review of Systems Genitourinary: Reports: no symptoms (no flatus; abd is completely soft, w bowel sound, nt) - Patient Data Vitals - most recent: Last Vital Signs Temp 97.9 F 10/17/16 08:00 Pulse 74 10/16/16 01:40 Resp 14 10/17/16 08:00 BP 156/82 H 10/17/16 11:36 Pulse Ox 96 10/17/16 08:00 Weight - most recent: 161 lb 6.054 oz I&O - last 24 hours: Intake & Output 10/16/16 10/17/16 10/17/16 22:59 06:59 14:59 Intake Total 3110 3050 Output Total 1100 1050 Balance 2009 1999 Lab Results last 24 hrs: Laboratory Results - last 24 hr 10/17/16 10/17/16 Range/Units 05:15 05:15 WBC 4.99 (4.0-11.0) K/uL RBC 3.97 L (4.50-5.90) M/uL Hgb 12.1 L (13.0-17.0) g/dL Hct 36.9 L (38.0-50.0) % MCV 92.9 (80.0-98.0) fL MCH 30.5 (27.0-32.0) pg MCHC 32.8 (31.0-37.0) g/dL RDW Std Deviation 50.3 (28.0-62.0) fl RDW Coeff of Wilfred 15 (11.0-15.0) % Plt Count 328 (150-400) K/uL MPV 9.50 (7.40-12.00) fL Nucleated RBC % 0.0 /100WBC Nucleated RBCs # 0 K/uL Sodium 141 (136-146) mmol/L Potassium 4.0 (3.5-5.1) mmol/L Chloride 110 (98-110) mmol/L Carbon Dioxide 23 (21-31) mmol/L BUN 17 (6.0-23.0) mg/dL Creatinine 0.9 (0.6-1.5) mg/dL Est Cr Clr Drug Dosing 90.37 mL/min Estimated GFR (MDRD) > 60.0 ml/min Glucose 90 (60-110) mg/dL Calcium 8.3 L (8.8-10.8) mg/dL Total Bilirubin 0.7 (0.1-1.5) mg/dL AST 16 (5-40) IU/L ALT 9 (8-54) IU/L Alkaline Phosphatase 61 (40-150) Total Protein 5.5 L (6.0-8.0) g/dL Albumin 3.0 L (3.4-4.8) g/dL Globulin 2.5 (2.0-3.5) g/dL Albumin/Globulin Ratio 1.2 L (1.3-2.8) Med Orders - Current: Current Medications Enalaprilat (Vasotec Iv) 1.25 mg IVPUSH Q6H [facility] Last Admin: 10/17/16 11:36 Dose: 1.25 mg Fentanyl (Sublimaze) 25 mcg IVPUSH Q2H PRN PRN Reason: Pain Last Admin: 10/16/16 06:30 Dose: 25 mcg Haloperidol Lactate (Haldol) 5 mg IM Q6H PRN PRN Reason: Agitation Lactated Ringer's (Ringers, Lactated) 1,000 mls @ 150 mls/hr IV ASDIRECTED [facility] Last Admin: 10/17/16 08:25 Dose: 150 mls/hr Pantoprazole Sodium 40 mg/ (Sodium Chloride) 10 mls @ 300 mls/hr IVPUSH DAILY [facility] Last Admin: 10/17/16 08:47 Dose: 300 mls/hr Piperacillin Sod/Tazobactam (Sod 3.375 gm/ Sodium Chloride) 50 mls @ 100 mls/ hr IV Q8H [facility] Last Admin: 10/17/16 10:00 Dose: 100 mls/hr Lorazepam (Ativan) 2 mg IV Q4H PRN PRN Reason: Agitation Last Admin: 10/16/16 07:27 Dose: 2 mg Sodium Chloride (Saline Flush) 10 ml FLUSH ASDIRECTED PRN PRN Reason: Keep Vein Open Last Admin: 10/16/16 00:34 Dose: 10 ml Sodium Chloride (Saline Flush) 2.5 ml FLUSH ASDIRECTED PRN PRN Reason: Keep Vein Open Last Admin: 10/16/16 00:34 Dose: 2.5 ml Discontinued Medications Fentanyl (Sublimaze) Confirm Administered Dose 100 mcg .ROUTE .STK-MED ONE Stop: 10/16/16 06:25 Last Admin: 10/16/16 06:40 Dose: Not Given Flumazenil (Romazicon) 0.2 mg IVPUSH ONETIME ONE Stop: 10/16/16 11:29 Last Admin: 10/16/16 11:32 Dose: 0.2 mg Haloperidol Lactate (Haldol) Confirm Administered Dose 5 mg .ROUTE .STK-MED ONE Stop: 10/16/16 06:25 Last Admin: 10/16/16 06:40 Dose: Not Given Haloperidol Lactate (Haldol) 5 mg IM ONETIME ONE Stop: 10/16/16 06:25 Last Admin: 10/16/16 06:31 Dose: 5 mg Hydromorphone HCl (Dilaudid) 1 mg IVPUSH ONETIME ONE Stop: 10/16/16 00:28 Last Admin: 10/16/16 00:34 Dose: 1 mg Hydromorphone HCl (Dilaudid) Confirm Administered Dose 2 mg .ROUTE .STK-MED ONE Stop: 10/16/16 00:47 Last Admin: 10/16/16 01:00 Dose: Not Given Hydromorphone HCl (Dilaudid) 2 mg IVPUSH ONETIME ONE Stop: 10/16/16 00:56 Last Admin: 10/16/16 01:01 Dose: 2 mg Sodium Chloride (Normal Saline) 1,000 mls @ 999 mls/hr IV STAT ONE Stop: 10/15/16 23:49 Last Admin: 10/16/16 00:34 Dose: 999 mls/hr Ondansetron HCl (Zofran) 4 mg IVPUSH ONETIME ONE Stop: 10/15/16 22:50 Last Admin: 10/16/16 00:34 Dose: 4 mg - Exam Abdomen: bowel sounds present, soft, no tenderness, no distension (no bm yet) - Problem List Review Problem List Initiated/Reviewed/Updated: Yes - My Orders Last 24 Hours: Active Orders 24 hr Category Date Time Status Communication Order [RC] ROUTINE Care 10/16/16 11:27 Active Communication Order [RC] ROUTINE Care 10/16/16 11:53 Active Communication Order [RC] STAT Care 10/17/16 11:42 Active Notify Provider Consults [RC] ASDIRECTED Care 10/17/16 01:10 Active Notify Provider Consults [RC] ASDIRECTED Care 10/17/16 01:14 Active Oxygen Therapy [RC] ASDIRECTED Care 10/17/16 01:17 Active Consult to Physician [CONS] Routine Cons 10/17/16 01:13 Active Abdomen Pelvis wo Cont [CT] Routine Exams 10/16/16 13:00 Taken CULTURE URINE [RM] Stat Lab 10/17/16 11:49 Ordered Enalaprilat [Vasotec IV] Med 10/17/16 11:00 Active 1.25 mg IVPUSH Q6H Code Status [Resuscitation Status] Routine Resus Stat 10/16/16 13:13 Ordered Medication Orders Enalaprilat (Vasotec Iv) 1.25 mg IVPUSH Q6H [facility] Last Admin: 10/17/16 11:36 Dose: 1.25 mg Fentanyl (Sublimaze) 25 mcg IVPUSH Q2H PRN PRN Reason: Pain Last Admin: 10/16/16 06:30 Dose: 25 mcg Haloperidol Lactate (Haldol) 5 mg IM Q6H PRN PRN Reason: Agitation Lactated Ringer's (Ringers, Lactated) 1,000 mls @ 150 mls/hr IV ASDIRECTED [facility] Last Admin: 10/17/16 08:25 Dose: 150 mls/hr Infusion: 10/17/16 07:35 Dose: 150 mls/hr Admin: 10/17/16 00:54 Dose: 150 mls/hr Infusion: 10/17/16 00:49 Dose: 150 mls/hr Admin: 10/16/16 18:08 Dose: 150 mls/hr Infusion: 10/16/16 18:08 Dose: 150 mls/hr Admin: 10/16/16 12:00 Dose: 150 mls/hr Infusion: 10/16/16 09:36 Dose: 150 mls/hr Admin: 10/16/16 02:55 Dose: 150 mls/hr Pantoprazole Sodium 40 mg/ (Sodium Chloride) 10 mls @ 300 mls/hr IVPUSH DAILY [facility] Last Admin: 10/17/16 08:47 Dose: 300 mls/hr Infusion: 10/16/16 09:43 Dose: 300 mls/hr Admin: 10/16/16 09:41 Dose: 300 mls/hr Piperacillin Sod/Tazobactam (Sod 3.375 gm/ Sodium Chloride) 50 mls @ 100 mls/ hr IV Q8H [facility] Last Admin: 10/17/16 10:00 Dose: 100 mls/hr Infusion: 10/17/16 02:49 Dose: 100 mls/hr Admin: 10/17/16 02:19 Dose: 100 mls/hr Infusion: 10/16/16 18:36 Dose: 100 mls/hr Admin: 10/16/16 18:06 Dose: 100 mls/hr Infusion: 10/16/16 10:11 Dose: 100 mls/hr Admin: 10/16/16 09:41 Dose: 100 mls/hr Infusion: 10/16/16 03:43 Dose: 100 mls/hr Admin: 10/16/16 03:13 Dose: 100 mls/hr Lorazepam (Ativan) 2 mg IV Q4H PRN PRN Reason: Agitation Last Admin: 10/16/16 07:27 Dose: 2 mg Sodium Chloride (Saline Flush) 10 ml FLUSH ASDIRECTED PRN PRN Reason: Keep Vein Open Last Admin: 10/16/16 00:34 Dose: 10 ml Sodium Chloride (Saline Flush) 2.5 ml FLUSH ASDIRECTED PRN PRN Reason: Keep Vein Open Last Admin: 10/16/16 00:34 Dose: 2.5 ml - Assessment Assessment (Free Text/Narrative):: doing much better, no longer sedated; adamantly denied abd pain; and is hungry, wbc is down to normal 4.6; dc ngt, start on clear diet today; thanks for med colleague to michelle HTN - Plan Plan (Free Text/Narrative):: doing much better, no longer sedated; adamantly denied abd pain; and is hungry, wbc is down to normal 4.6; dc ngt, start on clear diet today; thanks for med colleague to michelle HTN
--- NOTE | 2016-10-17 18:02 | CT ---
[facility] [place] DATE: 10/16/16 PATIENT'S AGE: 61 Patient: LOPEZ MOCTEZUMA Facility: [place], [place] Site . Site : 1955 Study: CT Abdomen/Pelvis WO CONT [id number]/25/2017 11:36:30 PM Ordering Physician: Cristina Johnson Final Report: HISTORY: Severe abdominal pain. TECHNIQUE: The abdomen and pelvis were scanned using helical technique at 3 mm intervals without IV or oral contrast. Sagittal and coronal reconstructions were performed. COMPARISON: 09 May 2013. FINDINGS: Lung bases: Stable 7 mm nodule right lower lobe image 30. No infiltrate. Hyperaeration. Liver and gallbladder: The unenhanced liver is homogeneous. The gallbladder is small and free of calcified stones. Spleen, pancreas and adrenal glands: The spleen is small. The unenhanced pancreas parenchyma is homogeneous. Adrenal glands are normal. Kidneys and bladder: No calcified urolithiasis or hydronephrosis. The bladder is distended. There is mild bladder wall thickening. There is a layer of calcific density seen in the posterior bladder or within the wall. Retroperitoneum and lymph nodes: There is calcification of the abdominal aorta. No pathologic renita aortic pelvic sidewall lymphadenopathy is seen. GI tract: There is marked dilatation of the stomach. There is dilated small bowel loops present measuring up to 5 cm. Distal small bowel loops are tiny in caliber. The transition point is not easily identified and appears to be in the right mid abdomen on image 93. The swirling mesenteric pattern seen on prior exam is not present. There is a small amount of stool and gas seen scattered throughout the colon. There is no free air in the abdomen. There is no free fluid the pelvis. Pelvic organs: Prostate is enlarged. Abdominal wall: There are bilateral fat containing inguinal hernias with the appearance of the right testicle in the lower inguinal canal. Osseous structures: Degenerative changes of the disks and facets within the lumbar spine. IMPRESSION: 1. A 7 mm right lower lobe nodule without change. 2. There is a small layer of calcific density seen in the posterior aspect of the distended bladder. This may be within the bladder wall. There is mild bladder wall thickening may be related to bladder outlet obstruction and the prostate is enlarged. 3. Marked distention of stomach and small bowel compatible with small bowel obstruction. The transition point appears to be in the right mid abdomen. Prior exam demonstrated a swirling of the mesentery. This is not apparent on the current exam. No pneumatosis is seen. Dictated by Talisha Rivera MD @ 10/16/2016 12:11:55 AM Dictated by: Talisha Rivera MD @ 10/16/2016 00:12:15 (Electronic Signature) Report Signed by Proxy and Original Signed Document filed in the Medical Record. [employer]
--- NOTE | 2016-10-17 18:03 | CR ---
EXAM DATE: 10/16/16 PATIENT'S AGE: 61 Patient: LOPEZ MOCTEZUMA Facility: [place], [place] Site . Site : 1955 Study: XRay Chest [id number]/25/2017 11:40:39 PM Ordering Physician: Cristina Johnson Final Report: INDICATION: PAIN, SOB TECHNIQUE: Chest 1 view. COMPARISON: 05/10/2013. FINDINGS: No pneumothorax or pleural effusion. Lungs are clear. Cardiac and mediastinal contours are within normal limits. Upper abdomen and osseous structures as imaged show no acute abnormality. IMPRESSION: No acute cardiopulmonary disease. Dictated by: Rigo Perkins MD @ 10/16/2016 00:13:45 (Electronic Signature) Report Signed by Proxy and Original Signed Document filed in the Medical Record. [facility]
--- NOTE | 2016-10-17 18:05 | CR ---
EXAM DATE: 10/16/16 PATIENT'S AGE: 61 Patient: LOPEZ MOCTEZUMA Facility: [place], [place] Site . Site : 1955 Study: XRay Abdomen [id number]/26/2017 1:28:55 AM Ordering Physician: Cristina Johnson Final Report: HISTORY: NG tube placement check. FINDINGS: A single upright view of the lower chest and upper abdomen demonstrates a normal cardiac silhouette. There is no free air in the diaphragm. NG tube is in place with the tip in the fundus of the stomach. The side hole is at the GE junction. There is scattered small bowel air-fluid levels with some stool and gas fill the colon. IMPRESSION: NG tube in place. The tip is in the fundus of the stomach with the side hole at the GE junction. Consider advancing the NG tube 2-3 cm. Dictated by Talisha Rivera MD @ 10/16/2016 1:36:31 AM Dictated by: Talisha Rivera MD @ 10/16/2016 01:36:37 (Electronic Signature) Report Signed by Proxy and Original Signed Document filed in the Medical Record. GERTRUDIS
--- NOTE | 2016-10-17 18:20 | CT ---
EXAM DATE: 10/16/16 PATIENT'S AGE: 61 Patient: LOPEZ MOCTEZUMA Facility: [place], [place] Site . Site : 1955 Study: CT Abdomen/Pelvis [id number]/26/2017 9:31:30 AM Ordering Physician: Lala Suero Final Report: INDICATION : Followup ileus. TECHNIQUE : CT scan of the abdomen and pelvis. Scans were obtained after a challenged with injection of water-soluble contrast through the patient`s nasogastric tube with delayed scanning NO IV CONTRAST Please note that all CT scans at this facility use dose modulation, iterative reconstruction and/or weight-based dosing when appropriate to reduce radiation dose to as low as reasonably achievable(ALARA). COMPARISON : CT scan of the abdomen and pelvis 10/15/2016. FINDINGS : Large amount of the contrast remains within the stomach. The bowel loops remain dilated with no obvious transition point. There is gradual dilution of the contrast column with some faint diluted contrast noted in bowel loops in the right lower quadrant. Contrast has not yet reached the colon. Stable 9 mm nodule in the right lower lobe. Lagunas catheter in the bladder. NG tube remains in the stomach. Abdominal organs show no change. No hydronephrosis. Bladder is somewhat thick walled. However the bladder is decompressed. Small amount of air is present in the bladder from catheterization. IMPRESSION : 1. Persistent ileus pattern. No transition zone identified in the small bowel. Contrast has not yet reached the colon. 2. Stable positioning of NG tube and Lagunas catheter. 3. Stable 9 millimeter nodule in the right lower lobe. Also present April 2013 Dictated by Ger Torres MD @ Oct 16 2016 10:02AM (Electronic Signature) Report Signed by Proxy and Original Signed Document filed in the Medical Record. [facility]
--- NOTE | 2016-10-17 18:32 | CT ---
EXAM DATE: 10/16/16 PATIENT'S AGE: 61 Patient: LOPEZ MOCTEZUMA Facility: [place], [place] Site . Site : 1955 Study: CT Abdomen/Pelvis [id number]/26/2017 1:54:46 PM Ordering Physician: Lala Suero Final Report: INDICATION: Ileus. TECHNIQUE: CT abdomen and pelvis acquired with oral contrast. COMPARISON: None. FINDINGS: This is a followup exam from a CT abdomen pelvis performed earlier in the day. Oral contrast has now reached the proximal colon. Wall thickening is demonstrated in multiple loops of jejunum and ileum. Colon is normal in caliber. Moderate stool retention is present throughout the colon. Bibasilar lung opacities have worsened since the earlier exam. No other significant changes. IMPRESSION: 1. Nonspecific wall thickening is present in multiple small bowel loops. A diffuse infectious or inflammatory process must be considered. 2. No sign of bowel obstruction. 3. Interval worsening of bibasilar atelectasis or infiltrates. Dictated by Gregorio Garcia MD @ 10/16/2016 2:23:53 PM Dictated by: Gregorio Garcia MD @ 10/16/2016 14:23:57 (Electronic Signature) Report Signed by Proxy and Original Signed Document filed in the Medical Record. [facility]
[2016-10-18] MEDS: Piperacillin/Tazobactam 3.375 GM in Sodium Chloride 0.9% 50 ML IV SCH (02:28)
[2016-10-18] MEDS: Enalaprilat 1.25 MG/ML SDV IVPUSH SCH ×2 (05:25→12:02)
[2016-10-18] MEDS: Lactated Ringers 1,000 ML IV SCH (06:56)
--- NOTE | 2016-10-18 09:06 | PCM.SURGPN ---
- General Info Date of Service: 10/18/16 - Review of Systems General: Reports: No Symptoms Pulmonary: Reports: no symptoms Gastrointestinal: Reports: No symptoms (passing flatus) - Patient Data Vitals - most recent: Last Vital Signs Temp 97.9 F 10/18/16 04:00 Pulse 53 L 10/18/16 04:00 Resp 19 10/18/16 04:00 BP 148/65 H 10/18/16 05:25 Pulse Ox 94 L 10/18/16 04:00 Weight - most recent: 158 lb 4.67 oz I&O - last 24 hours: Intake & Output 10/17/16 10/18/16 10/18/16 22:59 06:59 14:59 Intake Total 700 2840 Output Total 1250 3050 Balance -550 -210 Med Orders - Current: Current Medications Enalaprilat (Vasotec Iv) 1.25 mg IVPUSH Q6H [facility] Last Admin: 10/18/16 05:25 Dose: 1.25 mg Fentanyl (Sublimaze) 25 mcg IVPUSH Q2H PRN PRN Reason: Pain Last Admin: 10/16/16 06:30 Dose: 25 mcg Haloperidol Lactate (Haldol) 5 mg IM Q6H PRN PRN Reason: Agitation Lactated Ringer's (Ringers, Lactated) 1,000 mls @ 150 mls/hr IV ASDIRECTED [facility] Last Admin: 10/18/16 06:56 Dose: 150 mls/hr Pantoprazole Sodium 40 mg/ (Sodium Chloride) 10 mls @ 300 mls/hr IVPUSH DAILY [facility] Last Admin: 10/17/16 08:47 Dose: 300 mls/hr Piperacillin Sod/Tazobactam (Sod 3.375 gm/ Sodium Chloride) 50 mls @ 100 mls/ hr IV Q8H [facility] Last Admin: 10/18/16 02:28 Dose: 100 mls/hr Lorazepam (Ativan) 2 mg IV Q4H PRN PRN Reason: Agitation Last Admin: 10/16/16 07:27 Dose: 2 mg Sodium Chloride (Saline Flush) 10 ml FLUSH ASDIRECTED PRN PRN Reason: Keep Vein Open Last Admin: 10/16/16 00:34 Dose: 10 ml Sodium Chloride (Saline Flush) 2.5 ml FLUSH ASDIRECTED PRN PRN Reason: Keep Vein Open Last Admin: 10/16/16 00:34 Dose: 2.5 ml Discontinued Medications Fentanyl (Sublimaze) Confirm Administered Dose 100 mcg .ROUTE .STK-MED ONE Stop: 10/16/16 06:25 Last Admin: 10/16/16 06:40 Dose: Not Given Flumazenil (Romazicon) 0.2 mg IVPUSH ONETIME ONE Stop: 10/16/16 11:29 Last Admin: 10/16/16 11:32 Dose: 0.2 mg Haloperidol Lactate (Haldol) Confirm Administered Dose 5 mg .ROUTE .STK-MED ONE Stop: 10/16/16 06:25 Last Admin: 10/16/16 06:40 Dose: Not Given Haloperidol Lactate (Haldol) 5 mg IM ONETIME ONE Stop: 10/16/16 06:25 Last Admin: 10/16/16 06:31 Dose: 5 mg Hydromorphone HCl (Dilaudid) 1 mg IVPUSH ONETIME ONE Stop: 10/16/16 00:28 Last Admin: 10/16/16 00:34 Dose: 1 mg Hydromorphone HCl (Dilaudid) Confirm Administered Dose 2 mg .ROUTE .STK-MED ONE Stop: 10/16/16 00:47 Last Admin: 10/16/16 01:00 Dose: Not Given Hydromorphone HCl (Dilaudid) 2 mg IVPUSH ONETIME ONE Stop: 10/16/16 00:56 Last Admin: 10/16/16 01:01 Dose: 2 mg Sodium Chloride (Normal Saline) 1,000 mls @ 999 mls/hr IV STAT ONE Stop: 10/15/16 23:49 Last Admin: 10/16/16 00:34 Dose: 999 mls/hr Ondansetron HCl (Zofran) 4 mg IVPUSH ONETIME ONE Stop: 10/15/16 22:50 Last Admin: 10/16/16 00:34 Dose: 4 mg - Exam Abdomen: bowel sounds present, soft, no tenderness, no distension - Problem List Review Problem List Initiated/Reviewed/Updated: Yes - My Orders Last 24 Hours: Active Orders 24 hr Category Date Time Status Transfer Patient (Change bed) [ADT] Routine ADT 10/17/16 12:07 Ordered Communication Order [RC] ROUTINE Care 10/17/16 11:53 Active Communication Order [RC] STAT Care 10/17/16 11:42 Active May Shower [RC] ASDIRECTED Care 10/17/16 14:09 Active Full Liquid Diet [DIET] Diet 10/18/16 Breakfast Active CULTURE URINE [RM] Stat Lab 10/17/16 11:50 Received Enalaprilat [Vasotec IV] Med 10/17/16 11:00 Active 1.25 mg IVPUSH Q6H Nasogastric Orogastric Tube Removal [OM.PC] Routine Oth 10/17/16 12:06 Ordered Medication Orders Enalaprilat (Vasotec Iv) 1.25 mg IVPUSH Q6H [facility] Last Admin: 10/18/16 05:25 Dose: 1.25 mg Admin: 10/17/16 23:20 Dose: 1.25 mg Admin: 10/17/16 17:33 Dose: 1.25 mg Admin: 10/17/16 11:36 Dose: 1.25 mg Fentanyl (Sublimaze) 25 mcg IVPUSH Q2H PRN PRN Reason: Pain Last Admin: 10/16/16 06:30 Dose: 25 mcg Haloperidol Lactate (Haldol) 5 mg IM Q6H PRN PRN Reason: Agitation Lactated Ringer's (Ringers, Lactated) 1,000 mls @ 150 mls/hr IV ASDIRECTED [facility] Last Admin: 10/18/16 06:56 Dose: 150 mls/hr Infusion: 10/18/16 06:24 Dose: 150 mls/hr Admin: 10/17/16 23:43 Dose: 150 mls/hr Infusion: 10/17/16 22:44 Dose: 150 mls/hr Admin: 10/17/16 16:03 Dose: 150 mls/hr Infusion: 10/17/16 15:06 Dose: 150 mls/hr Admin: 10/17/16 08:25 Dose: 150 mls/hr Infusion: 10/17/16 07:35 Dose: 150 mls/hr Admin: 10/17/16 00:54 Dose: 150 mls/hr Infusion: 10/17/16 00:49 Dose: 150 mls/hr Admin: 10/16/16 18:08 Dose: 150 mls/hr Infusion: 10/16/16 18:08 Dose: 150 mls/hr Admin: 10/16/16 12:00 Dose: 150 mls/hr Infusion: 10/16/16 09:36 Dose: 150 mls/hr Admin: 10/16/16 02:55 Dose: 150 mls/hr Pantoprazole Sodium 40 mg/ (Sodium Chloride) 10 mls @ 300 mls/hr IVPUSH DAILY [facility] Last Admin: 10/17/16 08:47 Dose: 300 mls/hr Infusion: 10/16/16 09:43 Dose: 300 mls/hr Admin: 10/16/16 09:41 Dose: 300 mls/hr Piperacillin Sod/Tazobactam (Sod 3.375 gm/ Sodium Chloride) 50 mls @ 100 mls/ hr IV Q8H [facility] Last Admin: 10/18/16 02:28 Dose: 100 mls/hr Infusion: 10/17/16 18:38 Dose: 100 mls/hr Admin: 10/17/16 18:08 Dose: 100 mls/hr Infusion: 10/17/16 10:30 Dose: 100 mls/hr Admin: 10/17/16 10:00 Dose: 100 mls/hr Infusion: 10/17/16 02:49 Dose: 100 mls/hr Admin: 10/17/16 02:19 Dose: 100 mls/hr Infusion: 10/16/16 18:36 Dose: 100 mls/hr Admin: 10/16/16 18:06 Dose: 100 mls/hr Infusion: 10/16/16 10:11 Dose: 100 mls/hr Admin: 10/16/16 09:41 Dose: 100 mls/hr Infusion: 10/16/16 03:43 Dose: 100 mls/hr Admin: 10/16/16 03:13 Dose: 100 mls/hr Lorazepam (Ativan) 2 mg IV Q4H PRN PRN Reason: Agitation Last Admin: 10/16/16 07:27 Dose: 2 mg Sodium Chloride (Saline Flush) 10 ml FLUSH ASDIRECTED PRN PRN Reason: Keep Vein Open Last Admin: 10/16/16 00:34 Dose: 10 ml Sodium Chloride (Saline Flush) 2.5 ml FLUSH ASDIRECTED PRN PRN Reason: Keep Vein Open Last Admin: 10/16/16 00:34 Dose: 2.5 ml - Assessment Assessment (Free Text/Narrative):: hd#3, resolving ileus; tolerated po diet, dc mixon; void, home on full liquid X 3 days, then advance to regular diet; fu dr marie 1 - 2 wks; - Plan Plan (Free Text/Narrative):: hd#3, resolving ileus; tolerated po diet, dc mixon; void, home on full liquid X 3 days, then advance to regular diet; fu dr marie 1 - 2 wks;
[2016-10-18] MEDS: Pantoprazole 40 MG in Sodium Chloride 0.9% 10 ML IVPUSH SCH (09:28)
[2016-10-18] MEDS ORDERED: Tamsulosin 0.4 MG Cap.ER PO ONE (09:30)
[2016-10-18 12:03] VITALS: BP 138/79
--- NOTE | 2016-10-18 12:11 | PCM.SN ---
- Free Text/Narrative Note: His blood pressure has improved with intravenous vasotec. I have discussed with patient. He is to follow up with a primary care provider within a week. In the meantime, will not give antihypertensives so that we may see where his blood pressure is at home at baseline before committing to automated logistics specialist antihypertensive therapy.nolvia Bejarano MD
--- NOTE | 2016-10-18 15:09 | PCM.SN ---
- Free Text/Narrative Note: dc summary dictated, [id number]
--- NOTE | 2016-10-21 13:30 | DISCH ---
DATE OF DISCHARGE: 10/18/2016 PRIMARY CARE PHYSICIAN: Christian PCP ADMISSION DIAGNOSIS: Ileus. Please refer to the admission history and physical for details. HISTORY OF PRESENT ILLNESS: The patient presented to the emergency room with exaggerated abdominal pain and patient is "kicking and screaming" above the pain and he was finally calmed down after a lot of pain medications, 3 mg IV Dilaudid, and ventral CAT scan shows possible obstruction versus ileus. Surgery was then consulted and the patient was admitted for further observation. HOSPITAL COURSE: The patient was seen in the emergency room for abdominal pain and imaging study of possible bowel obstruction and however the patient NG tube inserted. The patient only put out 75 mL and at the same time, the patient deny more than 10 times he has any abdominal pain. Given the fact that he was given 3 mg IV Dilaudid and the patient is soundly snoring and can only awake to answer question, with sternal knock and exam may not be accceptable. White count at that time was 12.9 and no fever. The patient was admitted with conservative management and CAT scan with IV contrast was performed the next morning, however, the patient was given more sedation because the patient was again out of control, pulling IV line, pulling Lagunas, and is going to be damaging or hurting to patient himself, so he was given more pain medication fentanyl and also Haldol and also Ativan 2 mg IV, again the patient sounds snoring. NG tube was inserted in the emergency room and had only given less than 100 mL just like watery stuff not even dark or bile bilious stuff and followup CAT scan, delayed, got after hours and contrast reached the colon, and then the Radiology was read as ileus and the patient continued to deny any abdominal pain and finally after 36 hours, the patient finally awake and get a meaningful examination. The patient denied any pain and NG tube was removed and fed with oral diet, which the patient tolerated and at the same time, Lagunas was removed, patient was voided. The patient has a history of BPH and putting the Lagunas was quite difficult and patient finally voided after the Lagunas removed and tolerated p.o. diet. The patient was discharged. At the same time in the hospital admission, medical consult was ordered because of hypertension. The patient usually 150 to 180 and thanks for medical colleague input and the patient's blood pressure was more controlled. The patient will be followed up myself in 1 to 2 weeks from today and also one week from today by medical doctor and upon discharge, the patient has absolutely no pain and also has one bowel movement and doing good. AMALIA TUTTLE /[id number] MTDD
== END 2016-10-18 15:20 | disposition home or self-care (01) | DRG 390 ==
LOC: MW.ED 22:33 → MW.ICU 10-16 01:54 → UNDOADMIN 10-16 01:54 → MW.ICU 10-16 02:03
PROVIDERS: ADMIT Surgery; ATTEND Surgery
PROC: 0D9670Z Drainage of Stomach with Drainage Device, Via Natural or Artificial Opening (ICD-10-PCS; principal; 2016-10-16)
DX: K56.0 Paralytic ileus (principal); I10 Essential (primary) hypertension; N40.0 Benign prostatic hyperplasia without lower urinary tract symptoms; Z79.899 Other long term (current) drug therapy; Z87.891 Personal history of nicotine dependence
CPT/HCPCS: 36415; 43753; 71010; 71010-26; 74000; 74000-26; 74020; 74020-26; 74176; 74176-26; 80053; 80305; 81001; 82140; 83605; 83690; 84484; 85025; 85027; 85610; 87086; 93005; 96361; 96374; 96375; 99284; 99285-25; A9270-GY; C9113; G0480; J1170; J1630; J2060; J2405; J2543; J3010; J7040; J7050; J7120

== ENCOUNTER 2016-12-24 08:46 | Emergency (ER) | payer OTHER ==
[2016-12-24] MEDS ORDERED: Sodium Chloride 0.9% 1,000 ML IV ONE (08:53)
[2016-12-24] MEDS ORDERED: Ketorolac 30 MG/ML SDV IVPUSH ONE (08:53)
--- NOTE | 2016-12-24 09:05 | EDM.PDOC ---
ED HPI GENERAL MEDICAL PROBLEM - General Chief Complaint: Abdominal Pain Stated Complaint: UNKNOWN Time Seen by Provider: 12/24/16 08:51 - History of Present Illness INITIAL COMMENTS - FREE TEXT/NARRATIVE: HISTORY AND PHYSICAL: History of present illness: Patient is 61-year-old male who presents with concern of abdominal pain he did poor historian he states his pain started today quite severe he had similar episodes in the past he was admitted on his prior visit with the exact same presentation surgical consultation was obtained NG tube was placed patient was ultimately diagnosed with ileus and discharged home according to notes in general surgery in the best of my recollection it is similar exaggerative presentation has been no vomiting in the emergency department no reported fever chills chest pain shortness of breath or other concern Review of systems: As per history of present illness and below otherwise all systems reviewed and negative. Past medical history: As per history of present illness and as reviewed below otherwise noncontributory. Surgical history: As per history of present illness and as reviewed below otherwise noncontributory. Social history: No reported history of drug or alcohol abuse. Family history: As per history of present illness and as reviewed below otherwise noncontributory. Physical exam: HEENT: Atraumatic, normocephalic, pupils reactive, negative for conjunctival pallor or scleral icterus, mucous membranes moist, throat clear, neck supple, nontender, trachea midline. Lungs: Clear to auscultation, breath sounds equal bilaterally, chest nontender. Heart: S1S2, regular, negative for clicks, rubs, or JVD. Abdomen: Soft, nondistended, no localized tenderness . Negative for masses or hepatosplenomegaly. Negative for costovertebral tenderness. Pelvis: Stable nontender. Genitourinary: Deferred. Rectal: Deferred. Extremities: Atraumatic, negative for cords or calf pain. Neurovascular unremarkable. Neuro: Awake, alert, oriented. Cranial nerves II through XII unremarkable. Cerebellum unremarkable. Motor and sensory unremarkable throughout. Exam nonfocal. Diagnostics: CBC CMP amylase lipase UA acute abdominal series Therapeutics: Normal saline 1 L bolus Zofran 4 mg IV NG tube Impression: #1 abdominal pain Definitive disposition and diagnosis as appropriate pending reevaluation and review of above. Abdomen Pain Score (Numeric/FACES): 10 - Related Data Allergies Allergy/AdvReac Type Severity Reaction Status Date / Time No Known Allergies Allergy Verified 10/15/16 22:51 Home Meds: Home Meds Tamsulosin [Flomax] 1 tab PO DAILY 10/15/16 [History] Past Medical History - Past Health History Medical/Surgical History: Denies Medical/Surgical History Cardiovascular History: Reports: Hypertension. Denies: Arrhythmia, CAD, Cardiomyopathy, Congenital Septal Defect, Heart Failure Gastrointestinal History: Reports: Other (See Below) Other Gastrointestinal History: twisted bowel Genitourinary History: Reports: BPH - Infectious Disease History Infectious Disease History: Reports: Chicken Pox, Measles, Mumps Social & Family History - Family History Family Medical History: Noncontributory - Tobacco Use Smoking Status *Q: Current Every Day Smoker Years of Tobacco use: 30 Packs/Tins Daily: 1 - Caffeine Use Caffeine Use: Reports: None - Recreational Drug Use Recreational Drug Use: No ED ROS GENERAL - Review of Systems Review Of Systems: ROS reveals no pertinent complaints other than HPI. ED EXAM, GENERAL - Physical Exam Exam: See Below (See dictation) Course - Vital Signs Last Recorded V/S: Last Vital Signs Temp 36.3 C 12/24/16 11:06 Pulse 70 12/24/16 11:06 Resp 14 12/24/16 11:06 BP 140/76 12/24/16 11:06 Pulse Ox 95 12/24/16 11:06 - Orders/Labs/Meds Orders: Active Orders 24 hr Category Date Time Status EKG Documentation Completion [RC] STAT Care 12/24/16 08:52 Active Abdomen 2V AP Flat Upright [CR] Stat Exams 12/24/16 08:53 Taken Chest 1V Frontal [CR] Stat Exams 12/24/16 08:53 Taken NG [Nasogastric Orogastric Tube Insertion] [OM.PC] Stat Oth 12/24/16 09:02 Ordered Labs: Laboratory Tests 12/24/16 12/24/16 12/24/16 Range/Units 09:00 09:00 09:00 WBC 8.89 (4.0-11.0) K/uL RBC 4.59 (4.50-5.90) M/uL Hgb 14.2 (13.0-17.0) g/dL Hct 42.5 (38.0-50.0) % MCV 92.6 (80.0-98.0) fL MCH 30.9 (27.0-32.0) pg MCHC 33.4 (31.0-37.0) g/dL RDW Std Deviation 47.1 (28.0-62.0) fl RDW Coeff of Wilfred 14 (11.0-15.0) % Plt Count 297 (150-400) K/uL MPV 9.50 (7.40-12.00) fL Neut % (Auto) 68.4 (48.0-80.0) % Lymph % (Auto) 21.1 (16.0-40.0) % [place] % (Auto) 10.0 (0.0-15.0) % Eos % (Auto) 0.3 (0.0-7.0) % Baso % (Auto) 0.2 (0.0-1.5) % Neut # (Auto) 6.1 H (1.4-5.7) K/uL Lymph # (Auto) 1.9 (0.6-2.4) K/uL [place] # (Auto) 0.9 H (0.0-0.8) K/uL Eos # (Auto) 0.0 (0.0-0.7) K/uL Baso # (Auto) 0.0 (0.0-0.1) K/uL Nucleated RBC % 0.0 /100WBC Nucleated RBCs # 0 K/uL Lactate 1.3 (0.20-2.00) mmol/L Sodium 144 (136-146) mmol/L Potassium 4.5 (3.5-5.1) mmol/L Chloride 108 (98-110) mmol/L Carbon Dioxide 23 (21-31) mmol/L BUN 34 H (6.0-23.0) mg/dL Creatinine 1.5 (0.6-1.5) mg/dL Est Cr Clr Drug Dosing 52.89 mL/min Estimated GFR (MDRD) 47.7 ml/min Glucose 128 H (60-110) mg/dL Calcium 10.3 (8.8-10.8) mg/dL Total Bilirubin 0.3 (0.1-1.5) mg/dL AST 22 (5-40) IU/L ALT 12 (8-54) IU/L Alkaline Phosphatase 85 (40-150) Total Protein 8.1 H (6.0-8.0) g/dL Albumin 4.9 H (3.4-4.8) g/dL Globulin 3.2 (2.0-3.5) g/dL Albumin/Globulin Ratio 1.5 (1.3-2.8) Amylase 42 (10-90) U/L Lipase 21 (7-80) U/L Urine Color Urine Appearance Urine pH (5.0-8.0) Ur Specific [place] (1.001-1.035) Urine Protein (NEGATIVE) mg/dL Urine Glucose (UA) (NEGATIVE) mg/dL Urine Ketones (NEGATIVE) mg/dL Urine Occult Blood (NEGATIVE) Urine Nitrite (NEGATIVE) Urine Bilirubin (NEGATIVE) Urine Urobilinogen (<2.0) EU/dL Ur Leukocyte Esterase (NEGATIVE) Urine RBC (0-2/HPF) Urine WBC (0-5/HPF) Ur Epithelial Cells (NONE-FEW) Triple Phos Crystals (NEGATIVE) Urine Bacteria (NEGATIVE) Urine Opiates Screen (NEGATIVE) Ur Oxycodone Screen (NEGATIVE) Urine Methadone Screen (NEGATIVE) Ur Barbiturates Screen (NEGATIVE) Ur Phencyclidine Scrn (NEGATIVE) Ur Amphetamine Screen (NEGATIVE) U Methamphetamines Scrn (NEGATIVE) U Benzodiazepines Scrn (NEGATIVE) U Cocaine Metab Screen (NEGATIVE) U Marijuana (THC) Screen (NEGATIVE) 12/24/16 12/24/16 Range/Units 10:10 10:10 WBC (4.0-11.0) K/uL RBC (4.50-5.90) M/uL Hgb (13.0-17.0) g/dL Hct (38.0-50.0) % MCV (80.0-98.0) fL MCH (27.0-32.0) pg MCHC (31.0-37.0) g/dL RDW Std Deviation (28.0-62.0) fl RDW Coeff of Wilfred (11.0-15.0) % Plt Count (150-400) K/uL MPV (7.40-12.00) fL Neut % (Auto) (48.0-80.0) % Lymph % (Auto) (16.0-40.0) % [place] % (Auto) (0.0-15.0) % Eos % (Auto) (0.0-7.0) % Baso % (Auto) (0.0-1.5) % Neut # (Auto) (1.4-5.7) K/uL Lymph # (Auto) (0.6-2.4) K/uL [place] # (Auto) (0.0-0.8) K/uL Eos # (Auto) (0.0-0.7) K/uL Baso # (Auto) (0.0-0.1) K/uL Nucleated RBC % /100WBC Nucleated RBCs # K/uL Lactate (0.20-2.00) mmol/L Sodium (136-146) mmol/L Potassium (3.5-5.1) mmol/L Chloride (98-110) mmol/L Carbon Dioxide (21-31) mmol/L BUN (6.0-23.0) mg/dL Creatinine (0.6-1.5) mg/dL Est Cr Clr Drug Dosing mL/min Estimated GFR (MDRD) ml/min Glucose (60-110) mg/dL Calcium (8.8-10.8) mg/dL Total Bilirubin (0.1-1.5) mg/dL AST (5-40) IU/L ALT (8-54) IU/L Alkaline Phosphatase (40-150) Total Protein (6.0-8.0) g/dL Albumin (3.4-4.8) g/dL Globulin (2.0-3.5) g/dL Albumin/Globulin Ratio (1.3-2.8) Amylase (10-90) U/L Lipase (7-80) U/L Urine Color YELLOW Urine Appearance SLT CLOUDY Urine pH 7.5 (5.0-8.0) Ur Specific [place] 1.010 (1.001-1.035) Urine Protein TRACE (NEGATIVE) mg/dL Urine Glucose (UA) NEGATIVE (NEGATIVE) mg/dL Urine Ketones NEGATIVE (NEGATIVE) mg/dL Urine Occult Blood NEGATIVE (NEGATIVE) Urine Nitrite POSITIVE H (NEGATIVE) Urine Bilirubin NEGATIVE (NEGATIVE) Urine Urobilinogen 0.2 (<2.0) EU/dL Ur Leukocyte Esterase SMALL (NEGATIVE) Urine RBC 0-2 (0-2/HPF) Urine WBC 10-12 (0-5/HPF) Ur Epithelial Cells RARE (NONE-FEW) Triple Phos Crystals FEW (NEGATIVE) Urine Bacteria FEW (NEGATIVE) Urine Opiates Screen NEGATIVE (NEGATIVE) Ur Oxycodone Screen NEGATIVE (NEGATIVE) Urine Methadone Screen NEGATIVE (NEGATIVE) Ur Barbiturates Screen NEGATIVE (NEGATIVE) Ur Phencyclidine Scrn NEGATIVE (NEGATIVE) Ur Amphetamine Screen POSITIVE (NEGATIVE) U Methamphetamines Scrn POSITIVE (NEGATIVE) U Benzodiazepines Scrn NEGATIVE (NEGATIVE) U Cocaine Metab Screen NEGATIVE (NEGATIVE) U Marijuana (THC) Screen NEGATIVE (NEGATIVE) Meds: Medications Discontinued Medications Generic Name Dose Route Start Last Admin Trade Name Troy PRN Reason Stop Dose Admin Sodium Chloride 1,000 mls @ 999 mls/hr 12/24/16 08:53 12/24/16 09:00 Normal Saline IV 12/24/16 09:53 999 mls/hr STAT ONE Administration Ketorolac Tromethamine 30 mg 12/24/16 08:53 12/24/16 09:06 Toradol IVPUSH 12/24/16 08:54 30 mg ONETIME ONE Administration Departure - Departure Time of Disposition: 10:43 Disposition: Home, Self-Care 01 Condition: good Clinical Impression: Abdominal pain, Substance abuse, UTI (urinary tract infection) - Discharge Information Instructions: Abdominal Pain, Adult, [id number], Stimulant Use Disorder- Methamphetamines Referrals: [facility] [Outside] Forms: ED Department Discharge Additional Instructions: The following information is given to patients seen in the emergency department who are being discharged to home. This information is to outline your options for follow-up care. We provide all patients seen in our emergency department with a follow-up referral. The need for follow-up, as well as the timing and circumstances, are variable depending upon the specifics of your emergency department visit. If you don't have a primary care physician on staff, we will provide you with a referral. We always advise you to contact your personal physician following an emergency department visit to inform them of the circumstance of the visit and for follow-up with them and/or the need for any referrals to a consulting specialist. The emergency department will also refer you to a specialist when appropriate. This referral assures that you have the opportunity for followup care with a specialist. All of these measure are taken in an effort to provide you with optimal care, which includes your followup. Under all circumstances we always encourage you to contact your private physician who remains a resource for coordinating your care. When calling for followup care, please make the office aware that this follow-up is from your recent emergency room visit. If for any reason you are refused follow-up, please contact the [facility] emergency department at and asked to speak to the emergency department charge nurse. ALEX [facility] [place] [id number] Keflex as prescribed Stop using drugs follow up primary medical doctor/plan a 24 -48 hours return as needed as discussed - My Orders Last 24 Hours: My Active Orders 12/24/16 08:52 EKG Documentation Completion [RC] STAT 12/24/16 08:53 Abdomen 2V AP Flat Upright [CR] Stat Chest 1V Frontal [CR] Stat 12/24/16 09:02 NG [Nasogastric Orogastric Tube Insertion] [OM.PC] Stat - Assessment/Plan Last 24 Hours: My Active Orders 12/24/16 08:52 EKG Documentation Completion [RC] STAT 12/24/16 08:53 Abdomen 2V AP Flat Upright [CR] Stat Chest 1V Frontal [CR] Stat 12/24/16 09:02 NG [Nasogastric Orogastric Tube Insertion] [OM.PC] Stat
[2016-12-24 11:07] VITALS: BP 140/76
--- NOTE | 2016-12-26 13:37 | CR ---
EXAM DATE: 12/24/16 PATIENT'S AGE: 61 Patient: LOPEZ MOCTEZUMA Facility: [place], [place] Site . Site : 1955 Study: XRay Chest [id number]/3/2017 9:47:11 AM Ordering Physician: Cristina Johnson Final Report: INDICATION: Pain and shortness of breath. TECHNIQUE: Chest 1 view. COMPARISON: 15 October 2016. FINDINGS: Cardiovascular and mediastinum: Heart size and vasculature are normal in caliber and appearance. Mediastinum is within normal limits. Lungs and pleural space: Lungs are clear. No sign of infiltrate or mass. No sign of pleural effusion. No pneumothorax. Bones and soft tissues: Chronic right antral lateral 5th and 86 rib fractures as before. No new bony findings. IMPRESSION: No acute cardiopulmonary disease. Dictated by Kevin Galeas MD @ Dec 24 2016 10:01AM (Electronic Signature) Report Signed by Proxy. GERTRUDIS
--- NOTE | 2016-12-26 13:38 | CR ---
EXAM DATE: 12/24/16 PATIENT'S AGE: 61 Patient: LOPEZ MOCTEZUMA Facility: [place], [place] Site . Site : 1955 Study: XRay Abdomen [id number]/3/2017 9:49:00 AM Ordering Physician: Cristina Johnson Final Report: Indication: Abdominal pain and shortness of breath. Technique: Two views. Findings: Staggered air-fluid levels on the upright view. No free air. Upper normal air- filled small bowel loops. Stool within the right colon. Findings may be ileus or partial small bowel obstruction. Dictated by Kevin Galeas MD @ Dec 24 2016 10:08AM (Electronic Signature) Report Signed by Proxy. GERTRUDIS
== END 2016-12-24 11:11 | disposition home or self-care (01) ==
LOC: MW.ED 08:46
DX: N39.0 Urinary tract infection, site not specified (principal); R10.9 Unspecified abdominal pain; F19.10 Other psychoactive substance abuse, uncomplicated; Z79.899 Other long term (current) drug therapy; F17.210 Nicotine dependence, cigarettes, uncomplicated
CPT/HCPCS: 36415; 71010; 74020; 80053; 80305; 81001; 82150; 83605; 83690; 85025; 93005; 96361; 96374; 99284; J1885; J7040; 99283

== ENCOUNTER 2021-11-12 01:02 | Emergency (ER) | payer OTHER ==
[2021-11-12 01:11] VITALS: BP 144/72
[2021-11-12 02:06] LABS: BLOOD UREA NITROGEN,BUN 31 mg/dL (7.0-18.0); CARBON DIOXIDE,CO2 27.5 mmol/L (21.0-32.0); CHLORIDE,CL 107 mmol/L (98-107); GLUCOSE RANDOM 120 mg/dL (74-106); LIPASE 200 U/L (73-393); POTASSIUM,K 4.9 mmol/L (3.5-5.1); SODIUM,NA 141 mmol/L (136-148)
[2021-11-12 03:18] VITALS: PULSE 58
== END 2021-11-12 03:16 | disposition home or self-care (01) ==
LOC: MW.ED 01:02
DX: F15.10 Other stimulant abuse, uncomplicated (principal); I10 Essential (primary) hypertension; F41.9 Anxiety disorder, unspecified; F32.A Depression, unspecified; Z79.899 Other long term (current) drug therapy; Z20.822 Contact with and (suspected) exposure to COVID-19; W19.XXXA Unspecified fall, initial encounter
CPT/HCPCS: 36415; 70450; 70450-26; 71045; 71045-26; 72125; 72125-26; 72170; 72170-26; 80053; 80305-QW; 80307; 81001; 82550; 83605; 83690; 83735; 84443; 84484; 85025; 93005; 99284-25; U0002

== ENCOUNTER 2022-06-15 16:17 | Observation (INO) | payer OTHER ==
[2022-06-15] MEDS ORDERED: Sodium Chloride 0.9% 10 ML Syringe FLUSH PRN (16:38)
[2022-06-15] MEDS ORDERED: Sodium Chloride 0.9% 2.5 ML Syringe FLUSH PRN (16:38)
[2022-06-15] MEDS ORDERED: Ondansetron 4 MG/2 ML SDV IVPUSH ONE (16:39)
[2022-06-15] MEDS ORDERED: Sodium Chloride 0.9% 1,000 ML IV ONE (16:39)
[2022-06-15] MEDS ORDERED: Ketorolac 30 MG/ML SDV IVPUSH ONE (16:43)
[2022-06-15 17:44] LABS: CARBON DIOXIDE,CO2 24.2 mmol/L (21.0-32.0); POTASSIUM,K 4.6 mmol/L (3.5-5.1)
[2022-06-15] MEDS ORDERED: Ciprofloxacin in D5W 400 MG in Premix Bag 1 BAG IV STA ×2 (18:04)
[2022-06-15] MEDS ORDERED: cefTRIAXone 1 GM in Sodium Chloride 0.9% 50 ML IV ONE (18:11)
[2022-06-15] MEDS ORDERED: Tamsulosin 0.4 MG Cap.ER PO ONE (18:15)
[2022-06-15] MEDS: Sodium Chloride 0.9% 1,000 ML IV SCH (21:31)
[2022-06-16] MEDS: Sodium Chloride 0.9% 1,000 ML IV SCH ×3 (05:06→21:39)
[2022-06-16 06:54] LABS: POTASSIUM,K 3.7 mmol/L (3.5-5.1)
[2022-06-16] MEDS: Tamsulosin 0.4 MG Cap.ER PO SCH (09:03)
[2022-06-16] MEDS ORDERED: Acetaminophen 325 MG Tab PO PRN (16:41)
[2022-06-16] MEDS ORDERED: Albuterol/Ipratropium 3.0-0.5 MG/3 ML Neb Soln NEB PRN (16:42)
[2022-06-16] MEDS ORDERED: Polyethylene Glycol 3350 Powder 17 GM Packet PO PRN (16:42)
[2022-06-16] MEDS ORDERED: Pantoprazole 40 MG in Sodium Chloride 0.9% 10 ML IVPUSH SCH (16:45)
[2022-06-16] MEDS ORDERED: cefTRIAXone 2 GM in Premix Bag 1 BAG IV SCH (20:00)
[2022-06-17] MEDS: Sodium Chloride 0.9% 1,000 ML IV SCH (05:54)
[2022-06-17 07:51] LABS: CARBON DIOXIDE,CO2 22.4 mmol/L (21.0-32.0); POTASSIUM,K 4.4 mmol/L (3.5-5.1)
[2022-06-17] MEDS: Tamsulosin 0.4 MG Cap.ER PO SCH (08:23)
[2022-06-17 11:40] VITALS: BP 159/79; PULSE 55
== END 2022-06-17 13:00 | disposition home or self-care (01) ==
LOC: MW.ED 16:17 → MW.MS 18:15
PROVIDERS: ADMIT Internal Medicine; ATTEND Internal Medicine
DX: N17.9 Acute kidney failure, unspecified (principal); N39.0 Urinary tract infection, site not specified; N40.1 Benign prostatic hyperplasia with lower urinary tract symptoms; F41.9 Anxiety disorder, unspecified; F32.A Depression, unspecified; I10 Essential (primary) hypertension; F17.210 Nicotine dependence, cigarettes, uncomplicated; R33.8 Other retention of urine; Z79.899 Other long term (current) drug therapy; Z20.822 Contact with and (suspected) exposure to COVID-19
CPT/HCPCS: 36415; 51702; 80048; 80053; 81001; 83735; 85025; 85610; 87635; 96361; 96365; 96375; 96376; 99284; A9270; C9113; G0378; J0696; J1885; J2405; J3490; J7030; 99217; 99218; 99225; 99283; U0002

== ENCOUNTER 2022-12-04 13:40 | Emergency (ER) | payer OTHER ==
[2022-12-04] MEDS ORDERED: Diphtheria,Pertussis(Acell),Tetanus Vaccine 0.5 ML Syringe IM ONE (13:48)
[2022-12-04] MEDS ORDERED: Bacitracin Oint 1 GM U/D Packet TOP ONE (13:48)
[2022-12-04] MEDS ORDERED: Amoxicillin/Clavulanate K 875-125 MG Tab PO ONE (13:48)
[2022-12-04 14:35] VITALS: BP 145/81; PULSE 56
== END 2022-12-04 14:34 | disposition home or self-care (01) ==
LOC: MW.ED 13:40
DX: S81.851A Open bite, right lower leg, initial encounter (principal); I10 Essential (primary) hypertension; W54.0XXA Bitten by dog, initial encounter; Y93.K1 Activity, walking an animal; Y92.096 Garden or yard of other non-institutional residence as the place of occurrence of the external cause
CPT/HCPCS: 99282; 99283

== ENCOUNTER 2023-06-17 17:04 | Emergency (ER) | payer SELFPAY ==
[2023-06-17] MEDS ORDERED: Sodium Chloride 0.9% 1,000 ML IV ONE (17:17)
[2023-06-17 18:27] LABS: BASOPHILS ABSOLUTE AUTO 0.02 K/uL (0.00-0.20); BASOPHILS PERCENT AUTO 0.3 % (0.0-1.0); HEMATOCRIT 46.2 % (42.0-52.0); HEMOGLOBIN 16.1 g/dL (14.0-18.0); IMMATURE GRAN ABSOLUTE AUTO 0.02 K/uL (0.00-0.05); IMMATURE GRAN PERCENT AUTO 0.3 % (0.0-0.4); LYMPHOCYTES ABSOLUTE AUTO 1.12 K/uL (1.00-4.80); LYMPHOCYTES PERCENT AUTO 15.8 % (24.0-44.0); MEAN CORPUSCULAR HEMOGLOBIN 31.9 pg (28.0-32.0); MEAN CORPUSCULAR HGB CONC 34.8 g/dL (32.0-36.0); MEAN CORPUSCULAR VOLUME 91.7 fL (83.0-99.0); MEAN PLATELET VOLUME 9.5 fL (9.4-12.4); MONOCYTES ABSOLUTE AUTO 0.62 K/uL (0.00-0.80); MONOCYTES PERCENT AUTO 8.7 % (0.0-8.0); NEUTROPHILS ABSOLUTE AUTO 5.33 K/uL (1.80-7.70); NEUTROPHILS PERCENT AUTO 74.9 % (41.0-71.0); PLATELET COUNT,PLT 201 K/uL (150-400); RED BLOOD CELL COUNT 5.04 M/uL (4.52-5.90); WHITE BLOOD CELL COUNT,WBC 7.11 K/uL (3.9-11.3)
[2023-06-17 18:45] LABS: INR 0.96 (0.86-1.11)
[2023-06-17 19:00] LABS: A/G RATIO 0.9 (0.9-1.6); ALBUMIN 3.5 g/dL (3.4-5.0); BILIRUBIN TOTAL 0.2 mg/dL (0.2-1.0); CALCIUM 8.8 mg/dL (8.5-10.1); CARBON DIOXIDE,CO2 24.1 mmol/L (21.0-32.0); CREATININE 1.2 mg/dL (0.8-1.3); EST CRCL DRUG DOSING (CG) 58.21 mL/min; POTASSIUM,K 4.2 mmol/L (3.5-5.1); PROTEIN TOTAL,TP 7.4 g/dL (6.4-8.2)
[2023-06-17 19:48] LABS: APPEARANCE,URINE CLEAR; BILIRUBIN,URINE NEGATIVE (NEGATIVE); COLOR,URINE YELLOW; GLUCOSE,URINE NEGATIVE (NEGATIVE); KETONES,URINE NEGATIVE (NEGATIVE); LEUKOCYTE ESTERASE,URINE NEGATIVE (NEGATIVE); NITRITE,URINE NEGATIVE (NEGATIVE); OCCULT BLOOD,URINE NEGATIVE (NEGATIVE); PH,URINE 6.5 (5.0-8.0); PROTEIN,URINE NEGATIVE (NEGATIVE); UROBILINOGEN,URINE 0.2 EU/dL (<2.0)
[2023-06-17 21:51] VITALS: BP 128/73; PULSE 61
== END 2023-06-17 21:51 | disposition home or self-care (01) ==
LOC: MW.ED 17:04
DX: Z00.01 Encounter for general adult medical examination with abnormal findings (principal); R55 Syncope and collapse; E86.0 Dehydration; F17.210 Nicotine dependence, cigarettes, uncomplicated; I10 Essential (primary) hypertension; Z79.899 Other long term (current) drug therapy
CPT/HCPCS: 36415; 71045; 80053; 81003; 82947; 83605; 83690; 84484; 85025; 85610; 96360; 99285; J7030; 93010; 99282